=== PATIENT | male | born 1945 | race Caucasian/White ===

== ENCOUNTER 2016-07-23 16:12 | Outpatient (CLI) | payer OTHER | END 2016-07-23 16:13 | LOC: LABRHC 16:12 | PROVIDERS: ATTEND Family Medicine | DX: M54.5 Low back pain (principal) | CPT/HCPCS: 87086 ==

== ENCOUNTER 2016-12-11 11:20 | Outpatient (CLI) | payer OTHER | END 2016-12-11 11:21 | LOC: CARD 11:20 | PROVIDERS: ATTEND Internal Medicine Cardiovascular Disease | DX: I48.91 Unspecified atrial fibrillation (principal); E78.5 Hyperlipidemia, unspecified | CPT/HCPCS: G0463 ==

== ENCOUNTER 2017-07-03 16:04 | Outpatient (CLI) | payer OTHER ==
[2017-07-03 16:37] LABS: BASOPHILS % 0.7 (0.0-1.5); EOSINOPHILS % 2.1 % (0.0-6.8); MONOCYTES % 4.2 % (0.0-11.0); NEUTROPHILS # 6.8 # k/uL (1.4-7.7)
[2017-07-03 16:54] LABS: eGFR (African) > 60; eGFR (Non-African) 53
== END 2017-07-03 16:05 ==
LOC: LAB 16:04
PROVIDERS: ATTEND Family Medicine
DX: E03.9 Hypothyroidism, unspecified (principal); Z51.81 Encounter for therapeutic drug level monitoring
CPT/HCPCS: 36415; 80053; 84443; 85025

== ENCOUNTER 2017-09-25 11:59 | Outpatient (CLI) | payer OTHER | END 2017-09-25 13:26 | LOC: LAB 11:59 | PROVIDERS: ATTEND Family Medicine | DX: E03.9 Hypothyroidism, unspecified (principal); E55.9 Vitamin D deficiency, unspecified; R41.3 Other amnesia | CPT/HCPCS: 36415; 82607; 82746; 84207; 84439; 84443; 84481 ==

== ENCOUNTER 2017-12-03 13:14 | Outpatient (CLI) | payer OTHER | END 2017-12-03 13:15 | LOC: CARD 13:14 | PROVIDERS: ATTEND Internal Medicine Cardiovascular Disease | DX: E78.5 Hyperlipidemia, unspecified (principal); Z86.79 Personal history of other diseases of the circulatory system; I48.91 Unspecified atrial fibrillation | CPT/HCPCS: G0463 ==

== ENCOUNTER 2018-12-15 14:50 | Outpatient (CLI) | payer OTHER ==
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
== END 2018-12-15 15:00 ==
LOC: RAD 14:50
PROVIDERS: ATTEND Family Medicine
DX: S69.91XA Unspecified injury of right wrist, hand and finger(s), initial encounter (principal); X58.XXXA Exposure to other specified factors, initial encounter
CPT/HCPCS: 73140